=== PATIENT | male | born 1960 | race Two or more races ===

== ENCOUNTER 2023-11-27 11:45 | Inpatient (IN) | payer OTHER ==
[~2023-11-27] VITALS: Ht 180.3 cm; Wt 104.6 kg
[2023-11-27 12:37] LABS: Basophils # (auto) 0.1 10 ^3/uL (0-0.2); Basophils % (auto) 0.6 % (0.0-2.0); Eosinophils # (auto) 0.1 10 ^3/uL (0-0.8); Eosinophils % (auto) 0.6 % (0.0-7.0); Hematocrit 47.5 % (41.0-53.0); Hemoglobin 15.7 g/dL (13.5-17.5); Lymphocytes # (auto) 2.2 10 ^3/uL (0.4-5.4); Lymphocytes % (auto) 19.3 % (10.0-50.0); Mean Corpuscular Hemoglobin 28.1 pg (28.0-32.0); Mean Corpuscular Hgb Conc. 33.1 g/dL (32.0-36.0); Mean Corpuscular Volume 84.8 fL (80.0-100.0); Monocytes # (auto) 0.8 10 ^3/uL (0-1.3); Neutrophils # (auto) 8.2 10 ^3/uL (1.6-8.6); Neutrophils % (auto) 72.5 % (37.0-80.0); Platelet Count (auto) 198 10^3/uL (140-450); Red Cell Distribution Width 14.6 % (11.8-14.3); White Blood Cell 11.3 10^3/uL (4.4-10.8)
[2023-11-27 12:49] LABS: Chloride 109 mmol/L (98-107); Potassium 4.1 mmol/L (3.5-5.1); Sodium 140 mmol/L (136-145)
[2023-11-27 12:50] LABS: Anion Gap 7 (5-15); Calcium 9.9 mg/dL (8.7-10.4); Carbon Dioxide 24 mmol/L (20-30)
[2023-11-27 12:55] LABS: BUN/Creatinine Ratio 13.7 (10.0-20.0); Blood Urea Nitrogen 13 mg/dL (9-23); Glucose 142 mg/dL (74-106)
[2023-11-27 12:58] LABS: INR 1.11 (0.9-1.15); Partial Thromboplastin Time 27.2 SEC (24.5-34.5); Prothrombin Time 11.7 sec (9.3-11.8)
[2023-11-27] MEDS ORDERED: LACTULOSE 20Gm/30ML SOLN PO PRN (13:45)
[2023-11-27 18:29] VITALS: BP 138/83; PULSE 70; RESP 16; TEMP 98.4; O2SAT 95
[2023-11-27 18:33] VITALS: BP 138/83; PULSE 70; RESP 16; TEMP 98.4; O2SAT 95
[2023-11-27 18:49] VITALS: PULSE 70; RESP 16; O2SAT 95
[2023-11-27 20:00] VITALS: PULSE 113
[2023-11-27] MEDS: DULoxetine HCL 30 MG CAP PO SCH (21:33)
[2023-11-27] MEDS: amLODIPine BESYLATE 5 MG TAB PO SCH (21:34)
[2023-11-27 22:00] VITALS: BP 122/78; PULSE 65; RESP 18; TEMP 98; O2SAT 97
[2023-11-27] MEDS ORDERED: DEXTROSE (50%) 50ML SYRG IV PRN (22:00)
[2023-11-27] MEDS: ACCU-CHEK COMFORT CURVE STRIP VI SCH (22:48)
[2023-11-27] MEDS: ENOXAPARIN SOD 100 MG/1 ML SYRINGE SC SCH (22:48)
[2023-11-27] MEDS: HYDROcodone-ACET 10/325MG TAB PO PRN (22:48)
[2023-11-27] MEDS: InsuLIN REG 1unit/0.01ml Soln (100units/ml) SC SCH (22:55)
[2023-11-28] VITALS (14 sets, daily range): BP systolic 90–120; BP diastolic 58–74; PULSE 55–72; RESP 16–19; TEMP 97.6–98.7; O2SAT 92–100
[2023-11-28 06:08] LABS: Basophils # (auto) 0.1 10 ^3/uL (0-0.2); Basophils % (auto) 0.5 % (0.0-2.0); Eosinophils # (auto) 0.1 10 ^3/uL (0-0.8); Eosinophils % (auto) 0.7 % (0.0-7.0); Hematocrit 44.9 % (41.0-53.0); Lymphocytes # (auto) 2.4 10 ^3/uL (0.4-5.4); Lymphocytes % (auto) 22.9 % (10.0-50.0); Mean Corpuscular Hemoglobin 28.8 pg (28.0-32.0); Mean Corpuscular Hgb Conc. 33.5 g/dL (32.0-36.0); Mean Corpuscular Volume 86.2 fL (80.0-100.0); Monocytes # (auto) 1.1 10 ^3/uL (0-1.3); Monocytes % (auto) 10.7 % (0.0-12.0); Neutrophils # (auto) 6.8 10 ^3/uL (1.6-8.6); Neutrophils % (auto) 65.2 % (37.0-80.0); Nucleated Red Blood Cells % 0.1 %; Platelet Count (auto) 191 10^3/uL (140-450); Red Blood Cells 5.21 10^6/uL (4.5-5.90); Red Cell Distribution Width 14.8 % (11.8-14.3); White Blood Cell 10.4 10^3/uL (4.4-10.8)
[2023-11-28 06:17] LABS: INR 1.13 (0.9-1.15); Partial Thromboplastin Time 32.4 SEC (24.5-34.5); Prothrombin Time 11.9 sec (9.3-11.8)
[2023-11-28 06:26] LABS: Alanine Aminotransferase 35 U/L (7-40); Albumin 4.2 g/dL (3.2-4.8); Alkaline Phosphatase 69 U/L (46-116); Anion Gap 8 (5-15); Aspartate Aminotransferase 25 U/L (13-40); BUN/Creatinine Ratio 15.6 (10.0-20.0); Blood Urea Nitrogen 14 mg/dL (9-23); Calcium 8.9 mg/dL (8.7-10.4); Carbon Dioxide 23 mmol/L (20-30); Chloride 108 mmol/L (98-107); Glucose 109 mg/dL (74-106); Potassium 4.4 mmol/L (3.5-5.1); Sodium 139 mmol/L (136-145)
[2023-11-28 06:27] LABS: Bilirubin, Total 0.8 mg/dL (0.2-1.0); Total Protein 6.5 g/dL (5.7-8.2)
[2023-11-28] MEDS: InsuLIN REG 1unit/0.01ml Soln (100units/ml) SC SCH (06:50)
[2023-11-28] MEDS: glipiZIDE 5 MG TAB PO SCH (07:23)
[2023-11-28] MEDS: IODIXANOL 320MG/ML 100ML BTL IV ONE (08:03)
[2023-11-28] MEDS: fentaNYL CITRATE 100 MCG/2 ML VL ONE (08:06)
[2023-11-28] MEDS: VERAPAMIL 2.5MG/ML INJ 2ML VIAL IV ONE (08:06)
[2023-11-28] MEDS: SODIUM CHL 0.9% 0 ML ONE (08:06)
[2023-11-28] MEDS: ANGIOMAX 250 MG VIAL IV ONE (08:06)
[2023-11-28] MEDS: MIDAZOLAM HCL 2MG/2ML 2ml VIAL (1mg/ml) ONE (08:06)
[2023-11-28] MEDS: HEPARIN SODIUM (PORCINE) 5000 UNITS/ML 1ML VIAL ONE (08:07)
[2023-11-28] MEDS: LIDOCAINE 2%HCL (LOCAL ANESTH.) INJ 10ml MDV ONE (08:07)
[2023-11-28] MEDS: FAMOTIDINE 20 MG TAB PO SCH (10:00)
[2023-11-28] MEDS: ASPirin 81 mg TAB PO SCH (10:00)
[2023-11-28] MEDS: LISINOPRIL 5 MG TAB PO SCH (10:00)
[2023-11-28] MEDS ORDERED: ENOXAPARIN SOD 40 MG/0.4 ML SYRINGE SC SCH (10:00)
[2023-11-28] MEDS: hydroCHLOROthiazide 25 MG TAB PO SCH (10:00)
[2023-11-28] MEDS: ENOXAPARIN SOD 100 MG/1 ML SYRINGE SC SCH (18:15)
[2023-11-29 01:00] VITALS: BP 121/68; PULSE 56; RESP 17; TEMP 98.2; O2SAT 95
[2023-11-29 05:00] VITALS: BP 102/65; PULSE 55; RESP 16; TEMP 98.4; O2SAT 94
[2023-11-29 08:10] VITALS: PULSE 54
[2023-11-29 08:51] VITALS: BP 105/70; PULSE 56; RESP 16; TEMP 97.9; O2SAT 97
[2023-11-29 13:20] VITALS: BP 114/71; PULSE 54; RESP 16; TEMP 97.9; O2SAT 92
[2023-11-29 16:42] VITALS: BP 122/72; PULSE 51; RESP 16; TEMP 98; O2SAT 93
[2023-11-30] MEDS ORDERED: ENOXAPARIN SOD 40 MG/0.4 ML SYRINGE SC SCH (10:00)
== END 2023-11-29 18:55 | DRG 206 ==
LOC: ER 11:45 → EEVIPCON 11:45 → TELE 13:45 → TELE-CENTR 18:42
PROVIDERS: ADMIT Internal Medicine; ATTEND Internal Medicine
PROC: 4A023N7 Measurement of Cardiac Sampling and Pressure, Left Heart, Percutaneous Approach (ICD-10-PCS; principal; 2023-11-28)
PROC: B211YZZ Fluoroscopy of Multiple Coronary Arteries using Other Contrast (ICD-10-PCS; 2023-11-28)
DX: M94.0 Chondrocostal junction syndrome [Tietze] (principal); E11.9 Type 2 diabetes mellitus without complications; I10 Essential (primary) hypertension; E78.5 Hyperlipidemia, unspecified; E66.9 Obesity, unspecified; K21.9 Gastro-esophageal reflux disease without esophagitis; Z79.82 Long term (current) use of aspirin; Z82.49 Family history of ischemic heart disease and other diseases of the circulatory system; Z68.32 Body mass index [BMI] 32.0-32.9, adult; Z79.4 Long term (current) use of insulin
CPT/HCPCS: 36415; 71046; 80048; 80053; 82962; 83880; 84484; 85025; 85379; 85610; 85730; 93005; 93306; 93458; 99152; 99291; G0378; J1815; J2001; J2250; Q9967